=== PATIENT | female | born 1980 | race Caucasian/White ===

== ENCOUNTER 2021-09-23 05:15 | Inpatient (IN) | payer BC ==
[2021-09-23] MEDS ORDERED: Celecoxib 200 MG Cap PO ONE (06:00)
[2021-09-23] MEDS ORDERED: Dextrose 5%-Lactated Ringers 1,000 ML IV SCH (06:00)
[2021-09-23] MEDS ORDERED: Acetaminophen 500 MG Tab PO ONE (06:00)
[2021-09-23] MEDS ORDERED: Scopolamine 1.5 MG Transdermal Patch TOP ONE (06:00)
[2021-09-23] MEDS ORDERED: Succinylcholine 200 MG/10 ML MDV ONE (07:08)
[2021-09-23] MEDS ORDERED: Glycopyrrolate 0.2 MG/ML 5 ML MDV ONE (07:08)
[2021-09-23] MEDS ORDERED: Rocuronium 50 MG/5 ML Vial ONE (07:08)
[2021-09-23] MEDS ORDERED: Dexamethasone 4 MG/ML SDV ONE (07:08)
[2021-09-23] MEDS ORDERED: Ondansetron 4 MG/2 ML SDV ONE (07:08)
[2021-09-23] MEDS ORDERED: Propofol 200 MG/20 ML SDV ONE (07:08)
[2021-09-23] MEDS ORDERED: Neostigmine Methylsulfate 1 MG/ML 5 ML Syringe ONE (07:08)
[2021-09-23] MEDS ORDERED: fentaNYL 250 MCG/5 ML SDV ONE ×3 (07:08→10:55)
[2021-09-23] MEDS ORDERED: Lactated Ringers 1,000 ML ONE (07:10)
[2021-09-23] MEDS ORDERED: cefOXitin 2 GM in Sodium Chloride 0.9% 50 ML IV ONE (07:15)
[2021-09-23] MEDS ORDERED: Ketamine 500 MG/5 ML MDV IV SCH (07:30)
[2021-09-23] MEDS ORDERED: Ketamine 17 MG in Sodium Chloride 0.9% 19.83 ML IV SCH (07:30)
[2021-09-23] MEDS: cefOXitin 2 GM Vial ONE ×2 (07:46→08:45)
[2021-09-23] MEDS ORDERED: Insulin Lispro 100 Unit/ML 3 ML KwikPen SUBCUT ONE (09:18)
[2021-09-23] MEDS ORDERED: 50% Dextrose in Water 50 ML Syringe IVPUSH PRN (09:18)
[2021-09-23] MEDS ORDERED: Glucagon,Human Recombinant 1 MG Vial IM PRN (09:18)
[2021-09-23] MEDS ORDERED: hydrOXYzine HCL 100 MG/2 ML SDV IM ONE (09:19)
[2021-09-23] MEDS ORDERED: Ondansetron 4 MG/2 ML SDV IVPUSH ONE ×2 (09:20)
[2021-09-23] MEDS ORDERED: HYDROmorphone 1 MG/ML Syringe IV PRN (10:28)
[2021-09-23] MEDS ORDERED: HYDROmorphone 0.5 MG/0.5 ML Syringe IVPUSH PRN (10:28)
[2021-09-23] MEDS ORDERED: Cyclobenzaprine 10 MG Tab PO PRN (10:33)
[2021-09-23] MEDS: Dextrose 5%-Lactated Ringers 1,000 ML IV SCH ×2 (10:34→21:09)
[2021-09-23] MEDS: Lactated Ringers 1,000 ML IV SCH (10:37)
[2021-09-23] MEDS ORDERED: Acetaminophen 500 MG Tab PO PRN (11:00)
[2021-09-23] MEDS ORDERED: hydrOXYzine HCL 100 MG/2 ML SDV IM PRN (11:00)
[2021-09-23] MEDS ORDERED: Labetalol 20 MG/4 ML Syringe IVPUSH PRN (11:00)
[2021-09-23] MEDS ORDERED: traMADol 50 MG Tab PO PRN (11:00)
[2021-09-23] MEDS ORDERED: diphenhydrAMINE 50 MG/ML SDV IVPUSH PRN (11:00)
[2021-09-23] MEDS ORDERED: Metoclopramide 10 MG/2 ML SDV IVPUSH PRN (11:00)
[2021-09-23] MEDS ORDERED: Ondansetron 4 MG/2 ML SDV IVPUSH PRN (11:00)
[2021-09-23] MEDS: cefOXitin 2 GM in Sodium Chloride 0.9% 50 ML IV SCH ×3 (12:28→23:55)
[2021-09-23] MEDS ORDERED: Pantoprazole 40 MG Vial IVPUSH SCH (12:30)
[2021-09-23] MEDS: Acetaminophen 500 MG Tab PO SCH ×2 (13:40→21:40)
[2021-09-23] MEDS ORDERED: MVI, Adult with Vitamin K 10 ML, Thiamine 200 MG, Zinc/Copper/Manganese/Selenium 1 ML i... IV SCH ×4 (16:00)
[2021-09-23] MEDS: Insulin Lispro 100 Unit/ML 3 ML KwikPen SUBCUT SCH ×2 (16:42→21:30)
[2021-09-23] MEDS: Heparin Sodium 5,000 Units/ML Vial SUBCUT SCH (17:52)
[2021-09-23] MEDS: oxyCODONE 5 MG Tab PO PRN (19:27)
[2021-09-24] MEDS: Lactated Ringers 1,000 ML IV SCH (00:35)
[2021-09-24] MEDS ORDERED: Iopamidol 612 MG/ML 50 ML SDV PO ONE (02:43)
[2021-09-24] MEDS: Insulin Lispro 100 Unit/ML 3 ML KwikPen SUBCUT SCH ×3 (04:16→17:33)
[2021-09-24] MEDS: Acetaminophen 500 MG Tab PO SCH ×3 (06:02→21:09)
[2021-09-24] MEDS: Heparin Sodium 5,000 Units/ML Vial SUBCUT SCH ×2 (06:03→17:00)
[2021-09-24] MEDS: oxyCODONE 5 MG Tab PO PRN ×2 (06:10→20:19)
[2021-09-24] MEDS: cefOXitin 2 GM in Sodium Chloride 0.9% 50 ML IV SCH ×2 (06:23→11:55)
[2021-09-24] MEDS: Levothyroxine 100 MCG, Levothyroxine 25 MCG PO SCH ×2 (07:29)
[2021-09-24] MEDS ORDERED: Ondansetron 4 MG Tab.DIS PO PRN (07:51)
[2021-09-24] MEDS ORDERED: hydrOXYzine HCl 25 MG Tab PO PRN (07:52)
[2021-09-24] MEDS ORDERED: Lactated Ringers 1,000 ML IV SCH (08:00)
[2021-09-24] MEDS: Celecoxib 200 MG Cap PO SCH ×2 (08:24→21:09)
[2021-09-24] MEDS ORDERED: Escitalopram 20 MG Tab PO SCH (09:00)
[2021-09-24] MEDS ORDERED: Cetirizine 10 MG Tab PO SCH (09:00)
[2021-09-24] MEDS ORDERED: SCOPOLAMINE PATCH CHECK TOP SCH (09:00)
[2021-09-24] MEDS ORDERED: MVI, Adult with Vitamin K 10 ML, Thiamine 200 MG, Zinc/Copper/Manganese/Selenium 1 ML i... IV SCH ×4 (16:00)
[2021-09-24] MEDS ORDERED: Pantoprazole 40 MG Delayed-Release Granules 1 Packet PO SCH (16:30)
[2021-09-24 23:01] LABS: HEMOGLOBIN A1C 5.2 % (4.5-6.2)
[2021-09-25] MEDS: Heparin Sodium 5,000 Units/ML Vial SUBCUT SCH (05:13)
[2021-09-25] MEDS: Acetaminophen 500 MG Tab PO SCH (05:13)
[2021-09-25] MEDS: Levothyroxine 100 MCG, Levothyroxine 25 MCG PO SCH ×2 (08:42)
[2021-09-25] MEDS ORDERED: Cyanocobalamin (Vitamin B12) 1,000 MCG/ML SDV IM ONE (09:00)
== END 2021-09-25 09:00 | disposition home or self-care (01) | DRG 403 ==
LOC: JP.SDS 05:15 → JP.SDSSCHI 05:15 → EDSTATUS 07:15 → JP.MS 09:40
PROVIDERS: ADMIT Surgery; ATTEND Surgery
PROC: 0D164ZA Bypass Stomach to Jejunum, Percutaneous Endoscopic Approach (ICD-10-PCS; principal; 2021-09-23)
PROC: 0FB24ZX Excision of Left Lobe Liver, Percutaneous Endoscopic Approach, Diagnostic (ICD-10-PCS; 2021-09-23)
PROC: 0BQT4ZZ Repair Diaphragm, Percutaneous Endoscopic Approach (ICD-10-PCS; 2021-09-23)
PROC: 0DB64ZZ Excision of Stomach, Percutaneous Endoscopic Approach (ICD-10-PCS; 2021-09-23)
DX: E66.01 Morbid (severe) obesity due to excess calories (principal); G47.33 Obstructive sleep apnea (adult) (pediatric); R16.0 Hepatomegaly, not elsewhere classified; K44.9 Diaphragmatic hernia without obstruction or gangrene; K31.9 Disease of stomach and duodenum, unspecified; F41.1 Generalized anxiety disorder; F32.A Depression, unspecified; E11.9 Type 2 diabetes mellitus without complications; E03.9 Hypothyroidism, unspecified; G51.0 Bell's palsy; Z68.38 Body mass index [BMI] 38.0-38.9, adult; Z98.890 Other specified postprocedural states; Z88.0 Allergy status to penicillin; Z79.890 Hormone replacement therapy; Z79.84 Long term (current) use of oral hypoglycemic drugs; Z79.899 Other long term (current) drug therapy
CPT/HCPCS: 36415; 74240; 74240-26; 81025; 82947; 83036; 84443; 86850; 86900; 86901; 88305; 88307; 88313; A9270-GY; C9113; J0171; J0330; J0694; J1100; J1170; J1644; J1815; J2405; J2704; J2710; J2795; J3010; J3410; J3411; J3490; J7030; J7120; J7121; Q0162; Q9967